=== PATIENT | female | born 1990 | race Caucasian/White ===

== ENCOUNTER 2020-02-17 15:04 | Emergency (ER) | payer MEDICAID ==
[~2020-02-17] VITALS: Ht 172.7 cm; Wt 62.0 kg
[2020-02-17 15:24] VITALS: BP 124/83
[2020-02-17 15:52] LABS: CLARITY,URINE CLEAR (Clear); COLOR,URINE YELLOW (Yellow); GLUCOSE, URINE NEGATIVE (Neg); KETONES,URINE NEGATIVE (Neg); LEUKOCYTE ESTERASE ,URINE NEGATIVE (Neg); NITRITES, URINE NEGATIVE (Neg); OCCULT BLOOD,URINE NEGATIVE (Neg); PH,URINE 6.5 (4.8-8.0); PROTEIN,URINE NEGATIVE (Neg); UROBILINOGEN,URINE 0.2 E.U/dL (0.2-1.0)
[2020-02-17 15:52] LABS: BASOPHILS # (AUTO) 0.1 X10'3 (0-0.2); BASOPHILS % (AUTO) 0.9 % (0-1); EOSINOPHILS # (AUTO) 0.2 X10'3 (0-0.9); EOSINOPHILS % (AUTO) 2.5 % (0-6); HEMATOCRIT 41.7 % (35.0-45.0); HEMOGLOBIN 13.6 g/dl (12.0-16.0); LYMPHOCYTES # (AUTO) 3.1 X10'3 (1.1-4.8); LYMPHOCYTES % (AUTO) 32.5 % (21-51); MEAN CORPUSCULAR HEMOGLOBIN 28.9 PG (27.0-31.0); MEAN CORPUSCULAR HGB CONC 32.6 g/dL (33.0-36.5); MEAN CORPUSCULAR VOLUME 88.7 FL (78-98); MEAN PLATELET VOLUME 8.7 FL (7.4-10.4); MONOCYTES # (AUTO) 0.6 X10'3 (0-0.9); MONOCYTES % (AUTO) 5.9 % (2-12); NEUTROPHILS # (AUTO) 5.5 X10'3 (1.8-7.7); NEUTROPHILS % (AUTO) 58.2 % (42-75); PLATELET COUNT 280 X10'3 (140-440); RED CELL DISTRIBUTION WIDTH 13.9 % (11.5-14.5); WHITE BLOOD COUNT 9.5 X10'3 (4.5-11.0)
[2020-02-17 15:53] LABS: UA COLLECTION TYPE CLN CATCH MIDSTREAM
--- NOTE | 2020-02-17 16:05 | NUR ---
Pt had live 1 year ago and has not had a period since then. Pt takes control pills.
[2020-02-17 16:07] LABS: ALANINE AMINOTRANSFERASE 30 U/L (12-78); ALBUMIN 4.6 G/DL (3.4-5.0); ALBUMIN/GLOBULIN RATIO 1.4 (1.1-1.5); ALKALINE PHOSPHATASE 105 IU/L (46-116); AMYLASE 64 U/L (25-115); ANION GAP 9 (8-16); ASPARTATE AMINO TRANSFERASE 27 U/L (10-37); BILIRUBIN,TOTAL 0.2 MG/DL (0.1-1.0); BLOOD UREA NITROGEN 14 MG/DL (7-18); BUN/CREATININE RATIO 17.3 (6.6-38.0); CALCIUM 8.5 MG/DL (8.5-10.1); CHLORIDE 103 MMOL/L (99-107); CREATININE 0.81 MG/DL (0.40-0.90); GLUCOSE 96 MG/DL (70-104); LIPASE 91 U/L (73-393); SODIUM 140 MMOL/L (135-145); TOTAL CARBON DIOXIDE 28.5 MMOL/L (24-32); TOTAL PROTEIN 7.9 G/DL (6.4-8.2); eGFR 83 ML/MIN
[2020-02-17 16:27] LABS: URINE HCG NEGATIVE (NEG)
[2020-02-17] MEDS ORDERED: ketorolac tromethamine 15mg/ml inj. IM ONE (16:40)
[2020-02-17] MEDS ORDERED: IBUP-1985 PO (18:08)
== END 2020-02-17 18:23 | disposition home or self-care (01) ==
LOC: ER 15:05
DX: R10.30 Lower abdominal pain, unspecified (principal); Z88.5 Allergy status to narcotic agent; Z79.899 Other long term (current) drug therapy
CPT/HCPCS: 36415; 76856; 80053; 81003; 81025; 82150; 83690; 85025; 93976; 96372; 99284; J1885

== ENCOUNTER → 2023-11-14 | Outpatient (CLI) | payer MEDICAID ==
[~2023-11-14] MED LIST: IBUP-1985 PO
== END | disposition home or self-care (01) ==
LOC: MRI 10:57
PROVIDERS: ATTEND Family Medicine
DX: M79.671 Pain in right foot (principal); M25.571 Pain in right ankle and joints of right foot
CPT/HCPCS: 73718; 73721